=== PATIENT | male | born 1995 | race African-American/Black ===

== ENCOUNTER 2019-05-25 15:23 | Emergency (ER) | payer MEDICAID ==
[~2019-05-25] VITALS: Ht 180.3 cm; Wt 73.0 kg
[2019-05-25] MEDS ORDERED: DIAZEPAM 5 MG TABLET PO ONE (16:00)
[2019-05-25] MEDS ORDERED: IBUPROFEN 600MG TABLET PO ONE (16:00)
[2019-05-25 17:38] VITALS: BP 116/70
== END 2019-05-25 17:39 | disposition home or self-care (01) ==
LOC: ER 15:23
DX: M79.602 Pain in left arm (principal); V49.9XXA Car occupant (driver) (passenger) injured in unspecified traffic accident, initial encounter; Y93.89 Activity, other specified; Y92.410 Unspecified street and highway as the place of occurrence of the external cause
CPT/HCPCS: 72070; 73010; 99284

== ENCOUNTER 2022-04-28 13:06 | Emergency (ER) | payer BC, MEDICAID ==
[~2022-04-28] VITALS: Ht 165.1 cm; Wt 77.0 kg
[2022-04-28 14:13] VITALS: BP 102/58
== END 2022-04-29 00:29 | disposition left against medical advice (07) ==
LOC: ER 13:06
DX: A59.9 Trichomoniasis, unspecified (principal)
CPT/HCPCS: 99281

== ENCOUNTER 2022-04-29 09:51 | Emergency (ER) | payer BC, MEDICAID ==
[~2022-04-29] VITALS: Ht 167.6 cm; Wt 75.0 kg
[2022-04-29 11:15] VITALS: BP 119/45
== END 2022-04-29 15:10 | disposition left against medical advice (07) ==
LOC: ER 09:51
DX: Z53.21 Procedure and treatment not carried out due to patient leaving prior to being seen by health care provider (principal)

== ENCOUNTER 2022-06-21 09:10 | Emergency (ER) | payer BC, MEDICAID ==
[~2022-06-21] VITALS: Ht 167.6 cm; Wt 75.0 kg
[2022-06-21] MEDS ORDERED: IBUP-2029 MT ×2 (10:49→10:50)
[2022-06-21] MEDS ORDERED: SULF1TAB48 MT ×2 (10:49→10:50)
[2022-06-21] MEDS ORDERED: IBUPROFEN 600MG TABLET PO ONE (11:00)
[2022-06-21 11:08] VITALS: BP 132/85
== END 2022-06-21 11:09 | disposition home or self-care (01) ==
LOC: ER 09:10
DX: L03.211 Cellulitis of face (principal)
CPT/HCPCS: 99282

== ENCOUNTER 2022-09-16 09:41 | Emergency (ER) | payer BC, MEDICAID ==
[~2022-09-16] VITALS: Ht 170.2 cm; Wt 64.0 kg
[~2022-09-16 09:41] MED LIST: IBUP-2029 MT; SULF1TAB48 MT
[2022-09-16 10:15] VITALS: BP 131/70
[2022-09-16] MEDS ORDERED: HYDROCODONE/ACETAMINOPHEN 5/325MG TABLET PO ONE (11:15)
[2022-09-16] MEDS ORDERED: BACITRACIN ZINC OINT UDPKT TOP ONE (11:15)
[2022-09-16] MEDS ORDERED: TETANUS, DIPHTHERIA, PERTUSSIS VAC/PF 0.5ML (>10YR OLD) IM ONE (11:15)
[2022-09-16] MEDS ORDERED: LIDOCAINE HCL/PF 1% 10 MG/ML 5ML VIAL INFIL ONE (11:15)
[2022-09-16] MEDS ORDERED: CEPH500T MT (12:26)
[2022-09-16] MEDS ORDERED: SULF1TAB48 MT (12:26)
== END 2022-09-16 12:54 | disposition home or self-care (01) ==
LOC: ER 09:41
DX: L02.416 Cutaneous abscess of left lower limb (principal)
CPT/HCPCS: 10060; 90471; 90715; 99283; J3490